=== PATIENT | male | born 1990 | race Caucasian/White ===

== ENCOUNTER 2020-03-06 03:40 | Emergency (ER) | payer OTHER, MEDICAID, SELFPAY ==
[2020-03-06 03:40] VITALS: BP 144/84; PULSE 74; RESP 16; TEMP 36.4; O2SAT 98; BMI 23.7
[2020-03-06 03:57] VITALS: PULSE 84; O2SAT 100
[2020-03-06 04:00] VITALS: BP 134/77; PULSE 82; O2SAT 100
--- NOTE | 2020-03-06 04:02 | ED.SEIZURE ---
HPI - Seizure General Chief Complaint: Seizure Stated Complaint: had seizure at the [facility] Time Seen by Provider: 03/06/20 03:43 Source: patient Mode of arrival: Ambulatory Limitations: no limitations History of Present Illness HPI Narrative: Patient is a 29-year-old male who came to the emergency department with a friend for evaluation of potential seizure-like activity versus overdose on heroin. Patient was sitting in his car with his friend who is with him here in the ER at the local [facility] when the patient admitted that he injected himself the left side of his neck with heroin. He has used heroin in the past. He states that this in his he injected himself he got a ?strong gaitan? he states that after that he does not remember much. His friend who is with him at bedside was also with him during this time states that the patient slumped forward. There was no reports of breathing issues however he did have shaking like episode. Unsure as to how long these symptoms last. There was no loss of bowel or bladder. Did not bite his tongue. Patient has never had any seizure-like activity in the past. Patient's friend called EMS. EMS arrived and evaluated the patient. The civil division deputy sheriff on scene stated that the patient. To be postictal. There was no Narcan administered. During their short evaluation of the patient he did become more alert and oriented to the point where EMS thought that he was alert oriented x3 and GCS of 15. The patient initially declined to be transported to the hospital however several hours after the event arrived for this visit by private vehicle. Patient's only symptoms of slight headache.. Related Data Allergies Allergy/AdvReac Type Severity Reaction Status Date / Time No Known Drug Allergies Allergy Verified 03/06/20 03:59 Review of Systems Constitutional Constitutional: Denies fever(s) and Reports headache(s) Eyes Eyes: Denies change in vision ENT Ears, Nose, Mouth, and Throat: Reports headache(s) Cardiovascular Cardiovascular: Denies chest pain, Denies rapid heart rate, Denies lightheadedness and Denies dyspnea Respiratory Respiratory: Denies dyspnea Gastrointestinal Gastrointestinal: Denies abdominal pain, Denies nausea and Denies vomiting Integumentary/Breasts Skin/Breast: Denies lesions and Denies rash Neurologic Neurologic: Denies behavioral changes and Reports headache(s) Psychiatric Psychiatric: Denies behavioral changes Hematologic/Lymphatic Hematologic/Lymphatic: Denies easy bleeding and Denies easy bruising Patient History Medical History Drug abuse (Acute) Social History Smoking Status: Current every day smoker Smoking Status: Current every day smoker tobacco type: cigarettes alcohol intake frequency: holidays/special occasions only Substance Use Type: marijuana and heroin Exam Initial Vital Signs Initial Vital Signs: Vital Signs Temperature 97.6 F 03/06/20 03:40 Pulse Rate 74 03/06/20 03:40 Respiratory Rate 16 03/06/20 03:40 Blood Pressure 144/84 H 03/06/20 03:40 Pulse Oximetry 98 03/06/20 03:40 Const General: cooperative, comfortable and well developed Limitations: mental status not altered HENMT Head: normal to inspection and normocephalic Ears: hearing grossly normal bilaterally Eyes General: appearance normal, both eyes and all related structures Resp Effort & Inspection: normal respiratory effort Auscultation: clear to auscultation bilaterally Cardio Rate: regular rate Rhythm: regular rhythm GI Inspection: non-distended Palpation: soft Skin Lesions: no lesions Rashes: no rashes Neuro General: patient alert, patient awake and patient oriented x3 Cranial Nerves: CN's II-XI intact bilaterally Cognition: normal cognition Speech: speech normal Gait: normal gait Motor: muscle tone normal throughout Sensory Exam: no sensory deficits noted Extrem General: normal to inspection and capillary refill normal Psych Appearance: grossly normal and well kempt Scores GCS [place] coma scale eye opening: Spontaneous [place] coma scale verbal response: Orientated Stella coma scale motor response: Obey commands Stella coma scale total score: 15 Course Orders Ordered: ED Orders 03/06/20 04:00 Complete Blood Count AUTO DIFF Stat Comprehensive Metabolic Panel Stat Ethanol (ETOH) Stat Lipase Stat Prolactin Stat 03/06/20 04:03 CT head/brain wo con Stat Vital Signs Vital signs: Vital Signs - 8 hr 03/06/20 03:40 03/06/20 03:57 03/06/20 04:00 Temperature 97.6 F Pulse Rate 74 84 82 Respiratory Rate 16 Blood Pressure 144/84 H 134/77 Pulse Oximetry 98 100 100 03/06/20 04:30 Temperature Pulse Rate 71 Respiratory Rate Blood Pressure 114/79 Pulse Oximetry 99 MDM - Seizure Lab Data Attestation: I reviewed the patient's lab results. Result diagrams: 03/06/20 04:00 03/06/20 04:00 Labs: Lab Results 03/06/20 03/06/20 Range/Units 04:00 04:00 WBC 11.7 H (4.5-11.0) X10^3/uL RBC 4.89 (4.5-5.9) X10^6/uL Hgb 13.7 (13.5-17.5) g/dL Hct 41.6 (41-53) % MCV 85.2 (80-100) fL MCH 28.0 (26-34) PG MCHC 32.9 (30-36) % RDW 13.4 (11.6-14.8) % Plt Count 335 (150-400) X10^3/uL Neut % (Auto) 75.1 H (50-75) % Lymph % (Auto) 14.2 L (25-40) % [place] % (Auto) 9.4 (3-14) % Eos % (Auto) 0.8 L (2-4) % Baso % (Auto) 0.5 (0-2) % Neut # (Auto) 8700 H (0943-3493) /uL Lymph # (Auto) 1700 (5599-2827) /uL [place] # (Auto) 1100 H (0-900) /uL Eos # (Auto) 100 (0-450) /uL Baso # (Auto) 100 (0-100) /uL Sodium 140 (137-145) mmol/L Potassium 3.8 (3.4-5.1) mmol/L Chloride 103 (98-107) mmol/L Carbon Dioxide 26 (22-32) mmol/L BUN 20 (9-20) mg/dL Creatinine 0.90 (0.66-1.25) mg/dL Estimated GFR > 60.0 (>60) mL/min BUN/Creatinine Ratio 22.2 H (6-22) Glucose 99 (70-100) mg/dL Calcium 10.1 (8.4-10.2) mg/dL Total Bilirubin 0.4 (0.2-1.3) mg/dL AST 40 (17-59) IU/L ALT 28 (<50) IU/L Alkaline Phosphatase 75 (38-126) U/L Total Protein 8.7 H (6.3-8.2) g/dL Albumin 5.2 H (3.5-5.0) g/dL Globulin 3.5 (1.7-4.1) g/dL Albumin/Globulin Ratio 1.5 (1.0-2.8) Lipase 50 (23-300) U/L Prolactin 44.1 H (3.7-17.9) ng/mL Ethyl Alcohol < 10 ( - 10) mg/dL Imaging Data CT scan - head: Radiologist's Impression: No intracranial pathology MDM Narrative Medical decision making narrative: Patient is alert oriented x3 has a GCS of 15 not clinically intoxicated in my opinion has capacity to make decisions. Has a nonfocal neurologic exam. Unsure the exact cause of his presenting symptoms. It was during the time when he injected himself with heroin could which could very well cause him to become incapacitated however this affect seemed to not last more than a couple minutes and he recovered without any administration of Narcan. His friend who is here in the emergency department and was also with him during the event does describe some shaking like activity. EMS reports that the felt like he was confused while they were there and did seem to become more coherent as time went on which very well could be consistent with a postictal state. His head CT was unremarkable. Had a discussion with the patient regarding his symptoms. Informed him that this could very well have been a seizure or could have been the heroin. Patient expressed understanding of the lack of a definitive diagnosis. We will hold on any anti seizure medications for now. Patient was offered help for his drug abuse but he declined. Was informed that he should not drive. Was given a phone number to the health resource protection specialist to help establish a primary provider. He was given return precautions and follow-up instructions. He expressed understanding and agreement. Discharge Plan Departure Patient Disposition: Home Clinical Impression: Heroin use, Seizure-like activity Discharge Date/Time: 03/06/20 05:19 Instructions: DI for Substance Use Disorder Activity Restrictions/Additional Instructions: Recommend that you contact the health resources coordinator here at the hospital at [phone]. There is a individual with this number during business hours Sunday through Sunday who can help you with establishing a primary provider. I do recommend that you abstain from using heroin in the future. No driving for the next 24 hours. Return to the emergency department for any new or worsening symptoms
--- NOTE | 2020-03-06 04:03 | DI.CT.S_ITS ---
PROCEDURE: CT HEAD/BRAIN WO CON INDICATIONS: First-time seizure TECHNIQUE: Noncontrast 4.5 mm thick angled axial sections acquired from the foramen magnum to the vertex, with coronal and sagittal reformats. For radiation dose reduction, the following was used: automated exposure control, adjustment of mA and/or kV according to patient size. COMPARISON: None. FINDINGS: Image quality: Excellent. CSF spaces: Basal cisterns are patent. No extra-axial fluid collections. Ventricles are normal in size and shape. Brain: No midline shift. No intracranial masses or hemorrhage. Vale-white matter interface is normal. Skull and face: Calvarium and visualized facial bones are intact, without suspicious lesions. Sinuses: Visualized sinuses and mastoids are clear. IMPRESSION: No acute intracranial findings. These findings are concordant with the overnight interpretation. Dictated by: Connie Zhang M.D. on 03/06/2020 at 7:32 Approved by: Connie Zhang M.D. on 03/06/2020 at 7:33
[2020-03-06 04:16] LABS: Add Manual Diff / Slide Review NO; Basophils Absolute Auto 100 /uL (0-100); Basophils Percent Auto 0.5 % (0-2); Eosinophils Absolute Auto 100 /uL (0-450); Eosinophils Percent Auto 0.8 % (2-4); Hematocrit 41.6 % (41-53); Hemoglobin 13.7 g/dL (13.5-17.5); Lymphocytes Absolute Auto 1700 /uL (1100-4500); Lymphocytes Percent Auto 14.2 % (25-40); Mean Corpuscular HGB Conc 32.9 % (30-36); Mean Corpuscular Volume 85.2 fL (80-100); Monocytes Absolute Auto 1100 /uL (0-900); Monocytes Percent Auto 9.4 % (3-14); Neutrophils Absolute Auto 8700 /uL (1500-7000); Neutrophils Percent Auto 75.1 % (50-75); Platelet Count 335 X10^3/uL (150-400); Red Blood Cell Count 4.89 X10^6/uL (4.5-5.9); Red Cell Distribution Width 13.4 % (11.6-14.8); White Blood Cell Count 11.7 X10^3/uL (4.5-11.0)
[2020-03-06 04:20] LABS: HEMOLYSIS 28 (0-50)
[2020-03-06 04:27] LABS: Alanine Aminotransferase 28 IU/L (<50); Albumin 5.2 g/dL (3.5-5.0); Albumin Globulin Ratio 1.5 (1.0-2.8); Alkaline Phosphatase 75 U/L (38-126); Aspartate Aminotransferase 40 IU/L (17-59); BUN Creatinine Ratio 22.2 (6-22); Bilirubin Total 0.4 mg/dL (0.2-1.3); Blood Urea Nitrogen 20 mg/dL (9-20); Calcium 10.1 mg/dL (8.4-10.2); Carbon Dioxide 26 mmol/L (22-32); Chloride 103 mmol/L (98-107); Estimated Glomerular Filt Rate > 60.0 mL/min (>60); Ethanol (ETOH) < 10 mg/dL; Globulin 3.5 g/dL (1.7-4.1); Glucose 99 mg/dL (70-100); Lipase 50 U/L (23-300); Potassium 3.8 mmol/L (3.4-5.1); Sodium 140 mmol/L (137-145); Total Protein 8.7 g/dL (6.3-8.2)
[2020-03-06 04:30] VITALS: BP 114/79; PULSE 71; O2SAT 99
[2020-03-06 04:44] LABS: Prolactin 44.1 ng/mL (3.7-17.9)
[2020-03-06 05:00] VITALS: PULSE 57; O2SAT 100
[2020-03-06 05:01] VITALS: BP 112/70; PULSE 60; O2SAT 100
== END 2020-03-06 05:19 | disposition home or self-care (01) ==
PROVIDERS: Emergency Provider Emergency Medicine
DX: R56.9 Unspecified convulsions (principal); R51 Headache; F11.90 Opioid use, unspecified, uncomplicated
CPT/HCPCS: 36415; 70450; 80053; 80320; 83690; 84146; 85025; 99284